=== PATIENT | female | born 1985 | race Caucasian/White ===

== ENCOUNTER 2019-02-02 11:28 | Emergency (ER) | payer OTHER ==
[2019-02-02 11:34] VITALS: BP 120/74; PULSE 108; BMI 21.7
[2019-02-02] MEDS ORDERED: ACETAMINOPHEN 500 MG TABLET (FP) ONE (12:42)
[2019-02-02] MEDS ORDERED: ACETAMINOPHEN 500 MG TABLET (FP) PO ONE (12:42)
[2019-02-02 12:44] VITALS: TEMP 102.9
[2019-02-02] MEDS ORDERED: DEXAMETHASONE LIQUID 0.5 MG/5 ML 240 ML BULK BOTTLE PO ONE (13:01)
--- NOTE | 2019-02-02 13:04 | PDOC ---
History of Present Illness - General Chief Complaint: Cold Symptoms Stated Complaint: FEVER / BODY ACHE Time Seen by Provider: 02/02/19 12:53 - History of Present Illness Initial Comments: 02/02/19 13:02 33-year-old female presents for evaluation of sore throat and fever 2 days. Progressively worsening. No comorbidities Past History - Past Medical History Allergies/Adverse Reactions: Allergies Allergy/AdvReac Type Severity Reaction Status Date / Time No Known Allergies Allergy Verified 02/02/19 11:34 Home Medications: Ambulatory Orders Penicillin V Potassium [Pen Vee K -] 500 mg PO QID #40 tablet 02/02/19 Asthma: No Cancer: No Cardiac Disorders: No COPD: No Diabetes: No HTN: No Seizures: No Thyroid Disease: No - Suicide/Smoking/Psychosocial Hx Smoking History: Never smoked Have you smoked in the past 12 months: No Information on smoking cessation initiated: No Hx Alcohol Use: No Drug/Substance Use Hx: No Hx Substance Use Treatment: No Review of Systems - Review of Systems Constitutional: Yes: Fever HEENTM: Yes: Throat Pain, Difficulty Swallowing *Physical Exam - Vital Signs Last Vital Signs Temp Pulse Resp BP Pulse Ox 102.9 F H 108 H 18 120/74 100 02/02/19 12:44 02/02/19 11:32 02/02/19 11:32 02/02/19 11:32 02/02/19 11:32 - Physical Exam Comments: 02/02/19 13:02 HEAD: NC/AT EYES: Conjuntiva clear Ears: Canals and TM's normal NOSE: No d/c THROAT: Moist mucous membrances, oral pharanx erythemic with exudate, uvula midline NECK: Supple without adenopathy CARDIAC: S1 S2 LUNGS: CTA Full and Equal breath sounds ABDOMEN: Soft NT ND MS: Full ROM in all joints without edema NEUROLOGIC: No gross sensory or motor deficits, NVID SKIN: Normal color and temperature no lesions or rashes ED Treatment Course - Medications Given in the ED: ED Medications Discontinued Medications Generic Name Dose Route Start Last Admin Trade Name Freq PRN Reason Stop Dose Admin Acetaminophen 1,000 mg 02/02/19 12:42 02/02/19 12:44 Tylenol - PO 02/02/19 12:43 1,000 mg ONCE ONE Administration Medical Decision Making - Medical Decision Making 02/02/19 13:02 Treat for strep based on examination and history *DC/Admit/Observation/Transfer Diagnosis at time of Disposition: Strep pharyngitis - Discharge Dispostion Disposition: HOME Condition at time of disposition: Stable Decision to Admit order: No - Prescriptions Prescriptions: Penicillin V Potassium [Pen Vee K -] 500 mg PO QID #40 tablet - Referrals Referrals: Adan Restrepo MD [Primary Care Provider] - - Patient Instructions Printed Discharge Instructions: DI for Strep Throat, Strep Throat Additional Instructions: Tylenol as directed for pain. Avoid anti-inflammatories such as Advil Motrin Aleve and ibuprofen. He will given a dose of a long-acting steroid in the emergency room. Warm salt water gargles will also help with your pain. Please take the penicillin as directed and finish the entire 10 day course. Return to the emergency room for worsening symptoms and follow-up with your primary care physician one to 2 days for further evaluation and treatment options - Post Discharge Activity
[2019-02-02] MEDS ORDERED: DEXAMETHASONE SOD PHOSPHATE 10 MG/1 ML VIAL ONE (13:08)
[2019-02-02] MEDS ORDERED: PENICILLIN G BENZATHINE 1,200,000 UNIT/2 ML PFS IM ONE (13:12)
[2019-02-02] MEDS ORDERED: PENICILLIN G BENZATHINE 2,400,000 UNIT/4 ML PFS ONE (13:18)
== END 2019-02-02 14:02 | disposition home or self-care (01) ==
LOC: JERFT 11:28
DX: J02.0 Streptococcal pharyngitis (principal)
CPT/HCPCS: 99281-25